=== PATIENT | female | born 2000 | race Caucasian/White ===

== ENCOUNTER 2023-05-06 07:49 | Inpatient (IN) ==
[2023-05-06] MEDS ORDERED: LIDOCAINE 1% LOCAL 20 ML VIAL INFIL PRN (08:08)
[2023-05-06] MEDS ORDERED: OXYTOCIN 30 UNITS/NSS 30 UNITS/500 ML BAG IV PRN ×3 (08:08→21:29)
--- NOTE | 2023-05-06 08:40 | History & Physical Report ---
Date of Service May 06, 2023 Assessment & Plan (1) Supervision of normal first : Anne Forrest is a 22-year-old G1, P0 currently at 40 weeks 4 days gestational age presents for induction of labor 1. Fetus category 1 tracing 2. Labor: We will start oxytocin and AROM when appropriate. 3. Vitals: Within normal limits. 4. GBS negative. Admission and Anticipated Discharge Date Admission Date: May 06, 2023 History of Present Illness Primary Care Provider: Denny Ramires DO Forrest is a 22-year-old G1, P0 currently at 40 weeks 4 days gestational age presents for induction of labor. has been uncomplicated to date. OB Labs: Blood Type AB Positive 09/28/22 Antibody Screen NEGATIVE 09/28/22 Hemoglobin 10.1 g/dl (12.0-16.0) L 04/28/23 Hematocrit 30.8 % (37.0-47.0) L 04/28/23 Mean Corpuscular Volume 83.5 fL (80.0-100.0) 04/28/23 Platelet Count 211 K/uL (130-400) 04/28/23 Rubella IgG Antibody Immune (Immune) 09/28/22 Rapid Plasma Reagin Nonreactive (Nonreactive) 09/28/22 Hepatitis B Surface Antigen. NON-REACTIVE (NON-REACTIVE) 09/28/22 Hepatitis C Antibody (EIA) NON-REACTIVE (NON-REACTIVE) 09/28/22 HIV (1&2) Ag and Ab Confirmation NON-REACTIVE (NON-REACTIVE) 09/28/22 Glucose 1 Hour 50 gm Load 97 mg/dl (70-130) 02/08/23 Maternal Serum Alpha Fetoprotein 42.4 ng/mL 11/17/22 OB Optional Labs: Chlamydia trachomatis RNA Not Detected (NotDetected) 09/28/22 Neisseria gonorrhoeae RNA Not Detected (NotDetected) 09/28/22 Alpha Fetoprotein Triple Screen SEE NOTE 11/17/22 Labs Reviewed: Horizon 14-negative--mln cfdna-low risk--mln Allergies Allergy/AdvReac Type Severity Reaction Status Date / Time No Known Allergies Allergy Verified 05/03/23 10:58 Home Medications Medication Instructions Recorded Confirmed Type prenat.vits,jose,geo-jvts-osnwn 1 tab PO DAILY 09/18/22 05/05/23 History ondansetron HCl 4 mg tablet 4 mg PO Q6H PRN nausea and 04/22/23 05/05/23 Rx vomiting #30 tabs Patient History Medical History No pertinent past medical history No significant medical problems Varicella vaccine Surgical History H/O rhinoplasty Hx of tonsillectomy No pertinent past surgical history S/P wisdom tooth extraction Family History Grandmother (Maternal) Diabetes Grandmother (Paternal) Heart disease Denies family history of Ovarian cancer Breast cancer Colorectal cancer Social History Smoking Status: Never smoker Second Hand Exposure: No; Do You Dip or Chew Tobacco: No; Hx Alcohol Use: No Hx Substance Use: No Preferred Language: Honduran Communication Ability: Effective Staff Forester Required: No Beliefs That Will Affect Care: None marital status: marital status details: Sammy Bardales [phone] Current Living Situation: Spouse Current Living Situation Comment: - Sammy Singletary" current occupational status: employed current occupation: Daycare Other Information That Helps Us Care for You: No Feels Safe at Home: Yes Safety Concerns: Feels Safe At This Time Assistive Devices: None and Glasses Physical Exam Genitourinary: normal external appearance OB Exam Abdomen: + vertex Manual OB Exam: + cervical dilation (4.5), + cervical effacement 80% and + station -2 OB Exam Monitor Tracing: + external FHT monitor used, + external uterine monitor used, + category I and + normal FHT variability; no early decelerations present, no late decelerations present and no variable decelerations Results & Data Vital Signs (Past 12 Hours) Vital Signs Temp Pulse Resp BP 05/06/23 07:58 36.5 C 96 H 18 131/81 05/06/23 07:55 96 H 131/81 Coding Level of Care Code None Diagnoses Encounter for supervision of normal first in third trimester Z34.03 Trimester: third trimester (1) Supervision of normal first Trimester: third trimester Qualified Code(s): Z34.03 - Encounter for supervision of normal first , third trimester
[2023-05-06 08:43] LABS: Hematocrit (blood only) 31.1 % (37.0-47.0); Mean Corpuscular Hemoglobin 26.5 pg (25.0-34.0); Mean Corpuscular Hgb Conc 32.2 g/dL (32.0-36.0); Mean Corpuscular Volume 82.3 fL (80.0-100.0); Mean Platelet Volume 12.4 fL (9.4-12.4); Platelet Count 209 K/uL (130-400); RDW Coefficient of Variation 12.9 % (11.5-14.5); RDW Standard Deviation 38.8 fL (36.4-46.3); Red Blood Count 3.78 M/uL (4.20-5.40); White Blood Count 17.79 K/ul (4.8-10.8)
[2023-05-06] MEDS: LACTATED RINGER'S 1,000 ML IV PRN ×2 (08:55→11:58)
[2023-05-06] MEDS: ONDANSETRON INJ 2 MG/ML 2 ML VIAL IV PRN ×2 (08:55→14:06)
[2023-05-06] MEDS ORDERED: BUTORPHANOL TARTRATE 1 MG/ML VIAL IV ONE (11:44)
[2023-05-06] MEDS ORDERED: LIDOCAINE 2%/EPINEPHRINE 1:200,000 20 ML PF ONE ×2 (11:50→15:22)
[2023-05-06] MEDS ORDERED: ePHEDrine sulfate 50 MG/ML AMP ONE (11:50)
[2023-05-06] MEDS ORDERED: fentANYL 2 MCG/ML BUPIVacaine 0.125%-NSS 100ML BAG ONE (11:50)
[2023-05-06] MEDS ORDERED: fentaNYL citrate PF 100 MCG/2 ML VIAL ONE ×2 (11:50→15:23)
[2023-05-06] MEDS ORDERED: BUPIVACAINE 0.25% PF 30 ML VIAL ONE (11:50)
[2023-05-06] MEDS ORDERED: SODIUM CHLORIDE 0.9% PF INJ 10 ML VIAL ONE (11:50)
[2023-05-06] MEDS ORDERED: NALOXONE HCL 0.4 MG/1 ML VIAL/CARP IV PRN (11:59)
[2023-05-06] MEDS ORDERED: BUPIVACAINE 0.25% PF 30 ML VIAL EPI PRN (11:59)
[2023-05-06] MEDS ORDERED: diphenhydrAMINE 50 MG/ML VIAL IV PRN (11:59)
[2023-05-06] MEDS ORDERED: BUPIVACAINE 0.25% PF 30 ML VIAL EPI STA (11:59)
[2023-05-06] MEDS ORDERED: LIDOCAINE 2%/EPINEPHRINE 1:200,000 20 ML PF EPI STA (11:59)
[2023-05-06] MEDS ORDERED: LIDOCAINE 2% MPF LOCAL 5 ML VIAL EPI PRN (11:59)
[2023-05-06] MEDS ORDERED: SODIUM CHLORIDE 0.9% PF INJ 10 ML VIAL EPI PRN (11:59)
[2023-05-06] MEDS ORDERED: ePHEDrine sulfate 50 MG/ML AMP IV PRN (11:59)
[2023-05-06] MEDS ORDERED: NALBUPHINE HCL 5 MG in SYRINGE 0 ML IV PRN (11:59)
[2023-05-06] MEDS ORDERED: SODIUM CHLORIDE 0.9% PF INJ 10 ML VIAL EPI STA (11:59)
[2023-05-06] MEDS ORDERED: fentaNYL citrate PF 100 MCG/2 ML VIAL EPI PRN (11:59)
[2023-05-06] MEDS ORDERED: fentaNYL citrate PF 100 MCG/2 ML VIAL EPI STA (11:59)
[2023-05-06] MEDS ORDERED: ROPIVACAINE 0.5% PF 5 MG/ML 20 ML VIAL EPI PRN (11:59)
[2023-05-06] MEDS ORDERED: NALOXONE HCL 1 MG in SODIUM CHLORIDE 0.9% 1,000 ML IV PRN (11:59)
[2023-05-06] MEDS ORDERED: ONDANSETRON INJ 2 MG/ML 2 ML VIAL IV PRN (11:59)
--- NOTE | 2023-05-06 11:59 | Anesthesiology Consultation ---
Date of Service May 06, 2023 Assessment & Plan ASA ASA2 Proposed Anesthesia Anesthesia Type: Labor Epidural Risk / Benefits Reviewed With: PT / POA / Parent / Guardian, Accepts Plan and Informed Consent Obtained History Height/Weight Height: 5 ft 5 in Weight: 86.183 kg Allergies Allergy/AdvReac Type Severity Reaction Status Date / Time No Known Allergies Allergy Verified 05/06/23 10:40 Medications Home Medications Medication Instructions Recorded Confirmed Last Taken prenat.vits,jose,sxv-kbhn-ghyag 1 tab PO DAILY 09/18/22 05/06/23 04/27/23 20:00 Active Medications Generic Name Dose Route Start Last Admin Trade Name Freq PRN Reason Stop Dose Admin Oxytocin 30 units in 500 mls @ 2 mls/hr 05/06/23 08:09 05/06/23 13:22 Pitocin IV 05/08/23 08:08 0.12 units/hr .Q24H PRN 2 mls/hr Labor Induction/Augmentation Titration Protocol 0.12 UNITS/HR Lactated Ringer's 1,000 mls @ 125 mls/hr 05/06/23 08:08 05/06/23 12:23 Lr IV 05/08/23 08:07 125 mls/hr .Q8H PRN Infusion L&D Protocol Protocol Ondansetron HCl 4 mg 05/06/23 08:47 05/06/23 14:06 Ondansetron Inj 2 Mg/Ml 2 Ml Vial IV 06/05/23 08:46 4 mg Q4H PRN Administration Nausea Past Medical History Medical History Varicella vaccine No pertinent past medical history No significant medical problems Exercise / Class Metabolic Activity II 4-5 Yardwork/Stairs/Walk up hill Past Family History Family History Grandmother (Maternal) Diabetes Grandmother (Paternal) Heart disease Denies family history of Ovarian cancer Breast cancer Colorectal cancer Past Surgical History Surgical History S/P wisdom tooth extraction No pertinent past surgical history H/O rhinoplasty Hx of tonsillectomy Past Anesthesia History No Hx of Anesthesia Complications and No Family Hx of Anesthesia Complications History of PONV No Hx of PONV and No Hx of Motion Sickness Social History Smoking Status: Never smoker Do You Dip or Chew Tobacco: No Hx Alcohol Use: No Hx Substance Use: No substance use type: does not use Review of Systems denies fever/cough/ colds/ chest pain/ SOB/ JULIA denies JULIA Physical Exam Vital Signs Last Vital Signs Temp 36.7 C 05/06/23 14:59 Pulse 85 05/06/23 15:45 Resp 18 05/06/23 14:59 BP 127/61 05/06/23 15:45 Pulse Ox 96 05/06/23 15:42 ENMT Mouth: no TMJ abnormality and no dentition abnormality Thyromental Distance: > or= 3.5 Finger Breadths Mallampati Class: II Neck neck extension not limited Respiratory normal respiratory effort; no respiratory distress Auscultation: lungs clear to auscultation bilaterally Cardiovascular Rate/Rhythm: regular rate and regular rhythm Neurologic moves all extremities Psychiatric Orientation: alert and oriented x 3 Testing Laboratory Results 05/06/23 08:19
[2023-05-06] MEDS ORDERED: Nursing to Pharmacy Communication SCH (14:45)
[2023-05-06] MEDS ORDERED: ROPIVACAINE 0.5% 5 MG/ML 30 ML VIAL ONE (15:22)
--- NOTE | 2023-05-06 15:48 | Anesthesia Procedure Note ---
Date of Service May 06, 2023 Anesthesia Epidural Re-Dose Vital Signs Temp Pulse Resp BP Pulse Ox 36.7 C 85 18 127/61 96 05/06/23 14:59 05/06/23 15:45 05/06/23 14:59 05/06/23 15:45 05/06/23 15:42 Notes Pain Intensity: 0 Dilatation (cm): 9.0 Effacement (%): 90 Called by nursing to evaluate epidural as the patient is having increased pain. The epidural was re-dosed with the following medications (all medications via epidural route) after negative aspiration of the epidural catheter for CSF/HEME. 2ml 2% lidocaine with epi, 3mL ropivacaine 0.5% and 100 mcg fetanyl via epidural After Epidural Re-Dose Mental Status: alert / awake / arousable Pain: improving with treatment Airway Patency, RR, SpO2: stable & adequate BP & HR: stable & adequate
[2023-05-06] MEDS: fentANYL 2 MCG/ML BUPIVacaine 0.125%-NSS 100ML BAG EPI PRN ×2 (16:43→19:59)
[2023-05-06] MEDS ORDERED: bisacodyL 10 MG SUPP PR PRN (21:29)
[2023-05-06] MEDS ORDERED: HYDROCORTISONE ACETATE 25 MG SUPP PR PRN (21:29)
[2023-05-06] MEDS ORDERED: ACETAMINOPHEN 325 MG TAB PO PRN (21:29)
[2023-05-06] MEDS ORDERED: DIPHTHERIA/TETANUS/PERTUSSIS Vaccine (Tdap, Age 7+yrs) 0.5mL SYR/VL IM ONE (21:29)
[2023-05-06] MEDS ORDERED: BENZOCAINE 20% SPRY 85 APPLN/85 GM CAN EXT PRN (21:29)
[2023-05-06] MEDS ORDERED: miSOPROStoL 200 MCG TAB PR ONE (21:29)
--- NOTE | 2023-05-06 21:34 | Delivery Summary ---
Vaginal Delivery Summary Date of Service May 06, 2023 Vaginal Delivery Summary Patient progressed to 10 cm dilated 100% effaced +2 station and pushed over intact perineum with epidural anesthesia and delivered a viable with weight and Apgars pending. Patient pushed for approximately 2 hours and 45 minutes to achieve delivery. Head of the delivered in direct OA. Body and shoulders quickly followed and was noted to have good tone but without spontaneous cry upon delivery. With stimulation there was still notable for good tone without spontaneous cry and the cord was double clamped and cut after about 30 seconds. taken off to the waiting nursery staff for further evaluation. became vigorous shortly after cord was cut. Attention was then turned to deliver the placenta which delivered intact with three-vessel cord with gentle cord traction. Inspection of the perineum vagina and cervix there is noted to be a periurethral laceration which was hemostatic. Patient requested that the laceration not be repaired due to tenderness because it was not bleeding I felt that was reasonable. Needle sponge and instrument counts correct at the completion of the case. Both mother and stable in the immediate postdelivery period. Estimated blood loss of 300 mL and no complications noted during delivery [facility] Vaginal Delivery Charge Delivery Type Details:
--- NOTE | 2023-05-06 22:11 | Anesthesia Procedure Note ---
Date of Service May 06, 2023 Anesthesia Post Epidural Note Vital Signs Vital Signs: Temp Pulse Resp BP Pulse Ox 36.7 C 106 H 18 106/61 99 05/06/23 19:03 05/06/23 22:05 05/06/23 21:47 05/06/23 22:05 05/06/23 21:17 Pain Intensity Back: Pain Intensity: 6 Notes Mental Status: alert / awake / arousable and participated in evaluation Nausea / Vomiting: adequately controlled Pain: adequately controlled Airway Patency, RR, SpO2: stable & adequate BP & HR: stable & adequate Hydration State: stable & adequate Neuraxial Anesthesia: was administered and sensory block resolved Anesthetic Complications: no major complications apparent and Pt Satisfied with anesthetic care Epidural: Removed without complications and With tip intact
[2023-05-07] MEDS: IBUPROFEN 600 MG TAB PO PRN ×3 (00:51→19:59)
[2023-05-07 06:43] LABS: Hematocrit (blood only) 29.5 % (37.0-47.0); Hemoglobin 9.5 g/dl (12.0-16.0)
[2023-05-07] MEDS: FERROUS SULFATE 325 MG TAB PO SCH (07:30)
[2023-05-07] MEDS: DOCUSATE SODIUM 100 MG CAP PO SCH ×2 (07:30→19:59)
[2023-05-07] MEDS: PRENATAL VITAMIN 1 TAB PO SCH (07:30)
--- NOTE | 2023-05-07 07:58 | Obstetrical Progress Note ---
Date of Service May 07, 2023 Assessment & Plan (1) care following vaginal delivery: Plan Doing well Encourage ambulation Pain control Anticipate dc tomorrow Admission and Anticipated Discharge Date Admission Date: May 06, 2023 Supervising Physician Co-Signing Physician Notes Patient seen with resident and agree with the above findings and plan. Routine care Subjective 22 yo post day 1 s/p Ambulation: ambulating normally Voiding: no voiding problems Passing Gas:: Yes Diet Tolerance:: regular diet Lochia:: Small Feeding Type:: breast feeding Current Pain Level: mild Resting comfortably this AM in NAD. Denies DILLON, CP, SOB, N/V/D, LE pain/swelling. Review of Systems Review of Systems: reviewed, per HPI Physical Exam Physical Exam: General: patient resting comfortably, NAD, non-toxic in appearance, answers questions appropriately. Skin: warm, dry, intact HEENT: NC/AT, anicteric sclera, conjunctiva without injection, moist mucus membranes. Heart: +S1/S2, regular, no m/r/g Lungs: equal air entry bilaterally, no rales/rhonchi/wheezes Abd: +BS, soft, NT/ND, uterine fundus firm at umbilicus Ext: warm, no clubbing/cyanosis or edema, Nikunj's neg. Neuro: speech intact, no facial droop, moving all extremities on command. Results & Data Vital Signs (Past 12 Hours) Vital Signs Temp Pulse Pulse Resp BP BP Pulse Ox 05/07/23 04:05 36.5 C 85 20 102/67 97 05/07/23 00:31 37.4 C 104 H 20 110/72 98 05/07/23 00:00 36.6 C 18 05/06/23 23:17 36.6 C 18 05/06/23 23:17 100 H 05/06/23 23:17 109/63 05/06/23 23:02 108 H 05/06/23 23:02 117/62 05/06/23 22:48 18 05/06/23 22:48 108 H 05/06/23 22:48 118/58 L 05/06/23 22:17 18 05/06/23 22:17 106 H 05/06/23 22:17 107/66 05/06/23 22:05 18 05/06/23 22:05 106 H 05/06/23 22:05 106/61 05/06/23 21:47 18 05/06/23 21:47 95 H 05/06/23 21:47 100/63 05/06/23 21:32 20 05/06/23 21:32 102 H 05/06/23 21:32 119/60 05/06/23 21:17 20 05/06/23 21:17 99 05/06/23 21:17 100 H 05/06/23 21:17 121/68 05/06/23 21:12 98 05/06/23 21:12 95 H 05/06/23 21:07 97 05/06/23 21:07 157 H 05/06/23 21:02 95 05/06/23 21:02 141 H 05/06/23 20:57 95 05/06/23 20:57 145 H 05/06/23 20:57 92 05/06/23 20:57 137 H 05/06/23 20:52 98 05/06/23 20:52 91 H 05/06/23 20:52 84 05/06/23 20:52 129/77 05/06/23 20:47 95 05/06/23 20:47 87 05/06/23 20:46 20 05/06/23 20:46 20 05/06/23 20:46 93 05/06/23 20:46 94 H 05/06/23 20:42 88 L 05/06/23 20:42 119 H 05/06/23 20:37 94 05/06/23 20:37 120 H 05/06/23 20:36 109 H 05/06/23 20:36 129/78 05/06/23 20:35 78 05/06/23 20:35 126/74 05/06/23 20:32 98 05/06/23 20:32 96 H 05/06/23 20:27 97 05/06/23 20:27 134 H 05/06/23 20:25 93 05/06/23 20:25 114 H 05/06/23 20:22 97 05/06/23 20:22 138 H 05/06/23 20:17 96 05/06/23 20:17 127 H 05/06/23 20:15 20 05/06/23 20:15 20 05/06/23 20:13 90 05/06/23 20:13 105 H 05/06/23 20:12 97 05/06/23 20:12 82 05/06/23 20:07 96 05/06/23 20:07 79 05/06/23 20:06 81 05/06/23 20:06 123/59 L 05/06/23 20:02 97 05/06/23 20:02 78 05/06/23 20:00 92 05/06/23 20:00 109 H 05/06/23 19:57 97 05/06/23 19:57 92 H O2 Del Method 05/07/23 04:05 Room Air 05/07/23 00:31 Room Air 05/07/23 00:00 05/06/23 23:17 05/06/23 23:17 05/06/23 23:17 05/06/23 23:02 05/06/23 23:02 05/06/23 22:48 05/06/23 22:48 05/06/23 22:48 05/06/23 22:17 05/06/23 22:17 05/06/23 22:17 05/06/23 22:05 05/06/23 22:05 05/06/23 22:05 05/06/23 21:47 05/06/23 21:47 05/06/23 21:47 05/06/23 21:32 05/06/23 21:32 05/06/23 21:32 05/06/23 21:17 05/06/23 21:17 05/06/23 21:17 05/06/23 21:17 05/06/23 21:12 05/06/23 21:12 05/06/23 21:07 05/06/23 21:07 05/06/23 21:02 05/06/23 21:02 05/06/23 20:57 05/06/23 20:57 05/06/23 20:57 05/06/23 20:57 05/06/23 20:52 05/06/23 20:52 05/06/23 20:52 05/06/23 20:52 05/06/23 20:47 05/06/23 20:47 05/06/23 20:46 05/06/23 20:46 05/06/23 20:46 05/06/23 20:46 05/06/23 20:42 05/06/23 20:42 05/06/23 20:37 05/06/23 20:37 05/06/23 20:36 05/06/23 20:36 05/06/23 20:35 05/06/23 20:35 05/06/23 20:32 05/06/23 20:32 05/06/23 20:27 05/06/23 20:27 05/06/23 20:25 05/06/23 20:25 05/06/23 20:22 05/06/23 20:22 05/06/23 20:17 05/06/23 20:17 05/06/23 20:15 05/06/23 20:15 05/06/23 20:13 05/06/23 20:13 05/06/23 20:12 05/06/23 20:12 05/06/23 20:07 05/06/23 20:07 05/06/23 20:06 05/06/23 20:06 05/06/23 20:02 05/06/23 20:02 05/06/23 20:00 05/06/23 20:00 05/06/23 19:57 05/06/23 19:57 Resident Activity Tracking Resident Involvement: Resident Care Provided Care Provided: Adult Hospital Medicine
[2023-05-07] MEDS ORDERED: bisacodyL 5 MG TABEC PO SCH (20:00)
[2023-05-08] MEDS: IBUPROFEN 600 MG TAB PO PRN (06:10)
--- NOTE | 2023-05-08 06:48 | Obstetrical Progress Note ---
Date of Service May 08, 2023 Assessment & Plan (1) care following vaginal delivery: Plan Doing well Encourage ambulation Pain control Discharge today Admission and Anticipated Discharge Date Admission Date: May 06, 2023 Supervising Physician Co-Signing Physician Notes Resident Physician Supervision Note: I interviewed and examined the patient. Discussed with Dr. Short and agree with findings and plan as documented in the note. Any exceptions or clarifications are listed here: [None] Documented By: Jamilah Nicole MD, FACOG Subjective 22 yo post day 2 s/p Ambulation: ambulating normally Voiding: no voiding problems Passing Gas:: Yes Diet Tolerance:: regular diet Lochia:: Small Feeding Type:: breast feeding Current Pain Level: mild Resting comfortably this AM in NAD. Denies DILLON, CP, SOB, N/V/D, LE pain/swelling. Review of Systems Review of Systems: reviewed, per HPI Physical Exam Physical Exam: General: patient resting comfortably, NAD, non-toxic in appearance, answers questions appropriately. Skin: warm, dry, intact HEENT: NC/AT, anicteric sclera, conjunctiva without injection, moist mucus membranes. Heart: +S1/S2, regular, no m/r/g Lungs: equal air entry bilaterally, no rales/rhonchi/wheezes Abd: +BS, soft, NT/ND, uterine fundus firm at umbilicus Ext: warm, no clubbing/cyanosis or edema, Nikunj's neg. Neuro: speech intact, no facial droop, moving all extremities on command. Results & Data Vital Signs (Past 12 Hours) Vital Signs Temp Pulse Resp BP Pulse Ox O2 Del Method 05/07/23 23:45 36.4 C L 84 16 112/73 99 Room Air 05/07/23 20:30 37.0 C 70 18 111/76 98 Room Air Resident Activity Tracking Resident Involvement: Resident Care Provided Care Provided: Adult Hospital Medicine
[2023-05-08] MEDS: PRENATAL VITAMIN 1 TAB PO SCH (08:28)
[2023-05-08] MEDS: FERROUS SULFATE 325 MG TAB PO SCH (08:28)
[2023-05-08] MEDS: DOCUSATE SODIUM 100 MG CAP PO SCH (08:28)
== END 2023-05-08 10:30 | disposition home or self-care (01) | DRG 807 ==
LOC: 4S1 07:49 → 4E2 05-07 00:49
DX: Z37.0 Single live birth; Z3A.40 40 weeks gestation of pregnancy; Z79.899 Other long term (current) drug therapy; O80 Encounter for full-term uncomplicated delivery